=== PATIENT | female | born 1960 | race Caucasian/White ===

== ENCOUNTER → 2016-11-26 | Day surgery (SDC) | payer BC, OTHER ==
[~2016-11-26] MED LIST: ALLEGRA PO; ATENOLOL PO; CYMBALTA20 MG PO; DEXILANT60 MG PO; FLEXERIL PO; FLEXERIL10 MG PO; HYDROCHLOROTHIA25 MG PO; HYDROCODON-ACE1 EAC5 PO; IBUPROFEN PO; LORTAB 10-5001 EACH PO; LORTAB PO; NEURONTIN PO; NEXIUM PO; NORVASC PO; PREVACID PO; SINGULAIR PO; SKELAXIN PO; STOOL SOFTENER PO; STOOL SOFTENER100 M1 PO; SYNTHROID PO; VYTORIN 10/20 T1 TAB PO
--- NOTE | ~2016-11-26 | OR ---
Unit #: [id number] #: [id number] Patient: YOJANA PARKER [id number] [address] [place], [place] [address] [id number] MR#: [id number] NAME: YOJANA PARKER ROOM: Date of Procedure: 11/26/2016 Admission Date: 11/26/2016 Surgeon: Jens Mendes M.D. : 1960 Attending Physician: Jens Mendes M.D. Primary Care Physician: Maxwell Valera M.D. OPERATIVE REPORT PREOPERATIVE DIAGNOSES Herniated nucleus pulposus, back pain, radiculopathy. POSTOPERATIVE DIAGNOSES Herniated nucleus pulposus, back pain, radiculopathy. PROCEDURE PERFORMED Lumbar epidural steroid injection with intravenous sedation and fluoroscopic guidance for needle localization. 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 Last epidural steroid injection was done in a series of two in 12/2015 and 01/2016. She did well until the last month, she had about 10 months of improvement. Based on history, pathology, symptomatology, and treatment options, we are going to proceed with a repeat epidural steroid injection, if the patient needs a second injection, she will call in. DESCRIPTION OF PROCEDURE The patient was placed in a seated position. Standard monitors were applied. 2 mg of Versed were given for sedation and anxiolysis, which were adequate. Vital signs remained stable. Sterile prep and drape then of the lumbar area was performed. The skin at the L3-L4 level was localized with 1% lidocaine. An 18-gauge InnomiNettead needle was then advanced via loss of resistance technique and fluoroscopic guidance in toward the epidural space. After confirming proper positioning with fluoroscopy and radiographic contrast, 80 mg of Depo-Medrol and 4 mL of 0.125% bupivacaine were deposited. The patient tolerated the procedure otherwise well and was discharged to the recovery room in stable condition. Dictated by... Kush DominguezP/colette TD: 11/26/2016 11:10 JOB #: [id number] Unit #: [id number] #: [id number] Patient: KEITHYOJANA Hunt OPERATIVE REPORT Page 1 of 1 X Jens Mendes MD X PROCEDURE OPERATIVE NOTE
== END | disposition home or self-care (01) ==
LOC: CCSC 08:30
DX: M51.16 Intervertebral disc disorders with radiculopathy, lumbar region (principal); I10 Essential (primary) hypertension; M19.90 Unspecified osteoarthritis, unspecified site; E66.01 Morbid (severe) obesity due to excess calories; I73.9 Peripheral vascular disease, unspecified; Z88.8 Allergy status to other drugs, medicaments and biological substances; Z88.1 Allergy status to other antibiotic agents; Z79.899 Other long term (current) drug therapy
CPT/HCPCS: J1040; J2250